=== PATIENT | male | born 1930 | race Caucasian/White ===

== ENCOUNTER 2017-12-11 10:03 | Observation (INO) | payer OTHER ==
[~2017-12-11] VITALS: Ht 172.7 cm; Wt 69.8 kg
[~2017-12-11 10:03] MED LIST: ACET325 PO; ALBU90OI INH; ASPI81CH PO; ASPI81EC PO; ATOR10 PO; BISA10S PR; CARV3.125 PO; CITA20 PO; CLOP75 PO; CVS DISPOSABLE399 ML; DOXY100 PO; LEVFLO500 PO; LISHYD1012 PO; LISI20 PO; LOPE2C PO; LOSA25 PO; Milk Of Ma400 MG/5 M PO; NYST100TC TOP; OMEP20ER PO; PRED20 PO; RANO500T PO; SODCHL1 PO; ZINCODVICR TOP
[2017-12-11 10:39] LABS: BASOPHILS ABSOLUTE AUTO 0.07 K/mm3 (0.00-0.23); BASOPHILS PERCENT AUTO 1 % (0-2); EOSINOPHILS PERCENT AUTO 8 % (0-6); Hematocrit 38.4 % (37.0-53.0); Hemoglobin 12.8 g/dL (13.5-17.5); IMMATURE GRAN ABSOLUTE AUTO 0.02 K/mm3 (0.00-0.10); IMMATURE GRAN PERCENT AUTO 0 % (0-1); LYMPHOCYTES ABSOLUTE AUTO 1.17 K/mm3 (0.84-5.20); LYMPHOCYTES PERCENT AUTO 15 % (21-46); MONOCYTES ABSOLUTE AUTO 0.78 K/mm3 (0.16-1.47); MONOCYTES PERCENT AUTO 10 % (4-13); Mean Corpuscular HGB 31.9 pg (26.0-34.0); Mean Corpuscular HGB Conc 33.3 g/dL (31.5-36.5); Mean Corpuscular Volume 96 fL (80-100); Mean Platelet Volume 9.9 fL (9.1-12.4); NEUTROPHILS ABSOLUTE AUTO 5.28 K/mm3 (1.96-9.15); NEUTROPHILS PERCENT AUTO 67 % (41-73); Platelet Count 224 K/mm3 (150-400); RDW Coefficient Variation 13.2 % (11.7-14.2); RDW Standard Deviation 46.9 fL (35.1-46.3); Red Blood Cell Count 4.01 M/mm3 (4.30-5.90); White Blood Cell Count 7.92 K/mm3 (4.00-11.30)
[2017-12-11 10:50] LABS: Alanine Aminotransfer (ALT/SGP 16 U/L (12-78); Albumin, Blood 3.6 g/dL (3.4-5.0); Alk Phos 63 U/L (50-136); Anion Gap 8 mmol/L (6-16); Aspartate Aminotrans (AST/SGOT 16 U/L (12-37); Bilirubin, Total 0.5 mg/dL (0.1-1.0); Blood Urea Nitrogen 18 mg/dL (8-24); Bun/Creatinine Ratio 18.5 (12.0-20.0); CO2, Blood 27 mmol/L (21-32); Chloride, Blood 103 mmol/L (98-108); Creatinine, Blood 0.97 mg/dL (0.60-1.20); Globulin, Blood 3.7 g/dL (2.2-4.0); Glomerular Filtration Rate >60 (60-); Glucose, Blood 133 mg/dL (70-99); Potassium, Blood 4.1 mmol/L (3.5-5.5); Sodium, Blood 138 mmol/L (136-145); Total Protein, Blood 7.3 g/dL (6.4-8.2)
[2017-12-11] MEDS ORDERED: Citalopram HBr20 MG PO (11:42)
[2017-12-11] MEDS ORDERED: LISI5 PO (11:43)
[2017-12-11] MEDS ORDERED: RANO500T PO (11:43)
[2017-12-11] MEDS ORDERED: Ranitidine HCl150 M1 PO (11:43)
[2017-12-12] MEDS ORDERED: FURO20 PO (11:56)
[2017-12-12] MEDS ORDERED: ALBU3IS INH (11:56)
[2017-12-12] MEDS ORDERED: (None)20 M1 PO (11:57)
[2017-12-12] MEDS ORDERED: TAMS.4ER PO (11:57)
== END 2017-12-12 14:53 | disposition home or self-care (01) ==
LOC: ER 10:03 → MEDS 10:04 → ER 15:30 → MEDS 15:39
PROVIDERS: Emergency Medicine
DX: J96.01 Acute respiratory failure with hypoxia (principal); J44.1 Chronic obstructive pulmonary disease with (acute) exacerbation; I25.10 Atherosclerotic heart disease of native coronary artery without angina pectoris; F03.90 Unspecified dementia, unspecified severity, without behavioral disturbance, psychotic disturbance, mood disturbance, and anxiety; E78.00 Pure hypercholesterolemia, unspecified; I25.2 Old myocardial infarction; E78.5 Hyperlipidemia, unspecified; I50.9 Heart failure, unspecified; D50.9 Iron deficiency anemia, unspecified; Z95.1 Presence of aortocoronary bypass graft; Z87.891 Personal history of nicotine dependence; Z79.02 Long term (current) use of antithrombotics/antiplatelets; Z79.899 Other long term (current) drug therapy
CPT/HCPCS: 71045; 80053; 83880; 85025; 87086; 93005; 93010; 94640; 94644; 94645; 94760; 96372; 96374; 96375; 96376; 99285-25; G0378; J1650; J1940; J2930